=== PATIENT | female | born 1985 | race Caucasian/White ===

== ENCOUNTER 2018-11-18 08:57 | Inpatient (IN) | payer OTHER ==
[2018-11-18] MEDS ORDERED: Buffered Lidocaine 1% SYRIN* 1 ML/SYRINGE INTRADERM ONE (10:29)
[2018-11-18] MEDS ORDERED: Lactated Ringers 1000 ML Bag* 1,000 ML IV ONE (10:29)
--- NOTE | 2018-11-18 10:45 | HP ---
General Information - Reason for Visit Spontaneous rupture of membranes at 0800 with contractions now every 3-7 minutes - General Information Maternal Age: 32 Grav: 1 Para: 0 SAB: 0 IEA: 0 Estimated Due Date: 11/14/18 Determined By: Early Ultrasound Maternal Blood Type and Rh: O Positive - Results this Serology/RPR Result: Non-Reactive Rubella Result: Immune HBsAg Result: Negative HIV Result: Negative GBS Culture Result: Negative Past Medical History Past Medical History Comment: History ADHD, varicose veins, IBS Past Surgical History Comment: wisdom tooth extraction Pertinent Family History: See Records - Antepartal Records Antepartal Records: Reviewed, Uncomplicated Review of Systems Constitutional: Uncomfortable - with contractions CV Complaint: No Respiratory: Shortness of Breath: No Gastrointestinal: No Nausea/Vomiting, Soft Stool Genitourinary: Leaking Fluid Musculoskeletal: Contractions Neurological: No Headache, No Visual Changes Movement: Normal Exam Allergies/Adverse Reactions: Allergies No Known Allergies Allergy (Verified 11/18/18 09:15) Lab Values - Entire Visit: Laboratory Tests 11/18/18 09:24 Vag Amniotic Fld Detect Positive - Measurements Height: 5 ft 11.5 in Weight: 201 lb Weight in lbs: 201.183180 Body Mass Index (BMI): 27.6 Pre- Weight: 157 lb Weight Gained This : 44 lbs and 0 ozs - Exam Breast: - - soft, no masses Extremities: No Edema Heart: Normal Rhythm/Heart Sounds HEENT: No Significant Findings Lungs: Clear Bilaterally Reflexes: DTR 2+ Thyroid: No Thyromegaly - Abdominal Exam Abdomen Exam: Non-Tender - Ultrasound/Biophysical Profile Ultrasound Status: Not Done Targeted Exam Findings See L&D Outpatient Visit Provider Note for Findings: N/A Estimated Weight: 8 lbs Cervical Exam: 6cm Effacement: 90% Station: -1 Presenting Part: Vertex Membrane Status: SROM Amniotic Fluid Evaluation: Positive ROM Plus EFM Findings - External Monitor Findings Baseline Heart Rate: 150 External Monitor Findings: Accelerations Present, No Pattern of Variable or Late Decelerations, Variability Moderate, Baseline Stable External Monitor Findings Comment: Category 1 Contractions: Regular, Moderate, 45-90 Seconds Contraction Frequency: every 5 minutes Assessment/Plan - Assessment 32 year old primigravida at 40 4/7 weeks in active labor - Plan Plan: Admit - Anticipate Vaginal Delivery - Date/Time of Admission Date of Admission: 11/18/18 Time of Admission: 10:15
[2018-11-18] MEDS ORDERED: Lactated Ringers 1000 ML Bag* 1,000 ML IV SCH ×2 (11:00→16:00)
--- NOTE | 2018-11-18 13:02 | PN ---
Progress Note - Progress Note Date of Service: 11/18/18 Note: Feeling pressure. Well controlled, breathing through contractions Cervix: 9cm/100%, 0 station Will await urge to push, complete dilation
[2018-11-18] MEDS ORDERED: Oxytocin in LR* 20 UNITS/1,000 ML BAG IVPB ONE (14:38)
[2018-11-18] MEDS ORDERED: Chloroprocaine 2%* 20 ML VIAL ONE (14:46)
[2018-11-18 14:55] LABS: Hematocrit 41 % (33-41); Hemoglobin 14.2 g/dL (12.0-16.0); Mean Corpuscular HGB Conc 35 g/dL (31-36); Mean Corpuscular Hemoglobin 34 pg (27-31); Mean Corpuscular Volume 97 fL (80-97); Mean Platelet Volume 10.1 fL (7.4-10.4); Platelet Count 137 10^3/uL (150-450); Red Blood Count 4.21 10^6 /uL (3.70-4.87); Red Cell Distribution Width 14 % (10.5-15); White Blood Count 13.2 10^3/uL (3.5-10.8)
[2018-11-18] MEDS ORDERED: ceFAZolin 2 GM PREMIX in ORs 2 GM/50 ML BAG IVPB ONE ×2 (14:55→15:29)
--- NOTE | 2018-11-18 15:00 | PN ---
Progress Note - Progress Note Date of Service: 11/18/18 Note: Pt immediately s/p of female . CTSP due to cord avulsion related to adherent placenta. On exam, cord torn mostly through. Pt without anesthesia but tolerated manual evaluation of entire uterus. Part of placenta able to be delivered down, but fundal portion could not be adequately grasped without additional pain mgmt. Discussed OR manual extraction of placenta including risks of bleeding, infection and associated risk of additional surgery if placenta is truly adherent. Consent signed. Also plan to repair perineal laceration while in OR.
[2018-11-18] MEDS ORDERED: Phenylephrine 40 MCG/ML SYRINGE ONE (15:04)
[2018-11-18] MEDS ORDERED: Ondansetron INJ* 2 MG/ML VIAL ONE (15:04)
[2018-11-18] MEDS ORDERED: EPHEDrine (Pressors)* 50 MG/ML VIAL ONE (15:04)
[2018-11-18] MEDS ORDERED: DiMENhydriNATE IV* 50 MG/ML VIAL IV PUSH PRN (15:25)
[2018-11-18] MEDS ORDERED: Acetaminophen TAB* 325 MG PO PRN ×2 (15:25→15:27)
[2018-11-18] MEDS ORDERED: Witch Hazel PAD* JAR TOPICAL PRN (15:27)
[2018-11-18] MEDS ORDERED: Dibucaine 1% 28.35 GM TUBE PR PRN (15:27)
[2018-11-18] MEDS ORDERED: Glycerin ADULT SUPP PR PRN (15:27)
--- NOTE | 2018-11-18 15:39 | PROCNOTE ---
[facility] OB: Delivery Note - Delivery A Date of : 11/18/18 Time of : 14:25 [place] Sex: Female Weight at : 9 lb 2 oz Score 1 Minute: 9 Score 5 Minutes: 9 Gestational Age in Weeks and Days at Delivery: 40 Weeks and 4 Days Delivery Method: Spontaneous Vaginal Labor: Spontaneous Did Patient attempt ?: N/A, No Previous Amniotic Fluid: Clear Anesthesia/Analgesia: Other Anesthesia Comment: spinal by Dr. Fournier for placental removal in OR Delivered By: Rosa Elena Kinney - Nursery Level of Nursery: Regular/Bedside - Perineum Perineal Injury: Perineal Laceration - partial 3rd degree Perineal Repair: By Dr. Valdes in OR - Events Delivery Events of Note: Retained Placenta, Manual Removal of Placenta - Additional Delivery Notes Additional Delivery Notes: Fully and pushing at 1320. Pushed with steady progress for 1' 05" with SVB LFC, OA at 1425. pink and vigorous with stimulation. Gentle traction on cord with maternal effort as placenta partially resulted in cord avulsion. Manual removal of placenta attempted but placenta adherent. Dr. Valdes notified, he attempted manual removal without success. To OR for spinal anesthesia, manual removal of placenta, repair of laceration.
[2018-11-18] MEDS ORDERED: OXYTOCIN* 10 UNITS/ML 1 ML VIAL ONE (15:42)
[2018-11-18] MEDS ORDERED: Lidocaine 1% INJ* 10 MG/ML 30 ML SDV ONE (15:42)
[2018-11-18] MEDS ORDERED: Oxytocin in LR* 20 UNITS/1,000 ML BAG IVPB SCH (16:00)
[2018-11-18] MEDS ORDERED: Ammonia Inhalant* 1 EA AMP ONE (18:45)
--- NOTE | 2018-11-18 19:33 | OP ---
OPERATIVE REPORT: DATE OF OPERATION: 11/18/18 DATE OF : 81 SURGEON: Kriss Valdes MD ANESTHESIOLOGIST: Dr. Fournier. ANESTHESIA: Spinal. PRE-OP DIAGNOSES: 1. Retained placenta . 2. Partial third-degree perineal laceration. POST-OP DIAGNOSES: 1. Retained placenta . 2. Partial third-degree perineal laceration. OPERATIVE PROCEDURE: Manual extraction of retained placenta and repair of partial third-degree perineal laceration. ESTIMATED BLOOD LOSS: 300 cc. URINE OUTPUT: Not measured. IV FLUIDS: 1300 cc lactated Ringer's. MATERIALS TO LAB: Placenta. INDICATIONS: This patient is a 32-year-old 1, para 1, who presented at 40 plus 4 weeks gestation and delivered by spontaneous vaginal delivery this afternoon. The patient was managed and delivered by the paving block cutter service. They contacted me, the physician on-call, when there was cord avulsion due to difficulty delivering the placenta. On evaluation in the delivery room, the patient allowed a very good examination despite her lack of any anesthesia, but the placenta could not be removed and grasped adequately without sufficient pain control. Considering this, the patient was counseled and consented for manual extraction of the placenta in the operating room with spinal anesthetic. We also discussed closure of the perineum at the same time. FINDINGS: Placenta somewhat adherent to the anterior uterus and upper left cornual area. This did come down without much difficulty once a hand could be placed fully into the upper uterus. No additional tissue was palpated afterwards. The patient was also noted to have a partial third-degree laceration with disruption of the anal sphincter capsule. COMPLICATIONS: None. DESCRIPTION OF PROCEDURE: The risks, benefits, and alternatives were described to the patient and informed consent was obtained. The patient was taken to the operating room with IV running. A time-out was performed. A Vu catheter was placed. The urine output was unable to be measured as there was a defect in the Vu bag, which caused it to leak. The patient was draped in a high lithotomy position. A hand was then able to be placed through the vagina and into the upper uterine cavity. The placenta was palpated and then grasped and pulled down until it had been fully delivered. On reinspection of the uterine cavity, a small amount of adherent placenta was able to be removed digitally without difficulty. At that time, the uterine cavity felt smooth without additional remaining tissue. IV Pitocin was administered and bimanual massage resulted in firm fundal tone and minimal bleeding. At that time, the perineum and introitus were inspected. There was a right vaginal sulcus laceration, which was noted to have bleeding and this was repaired with 3-0 Vicryl Rapide in a running locked fashion with good hemostasis. On inspection of the perineal laceration, there was partial disruption of the anterior anal sphincter capsule, but the muscle appeared to be mostly intact. 3-0 Vicryl interrupted sutures were placed in the capsule and muscle anteriorly with good reapproximation. The rest of the perineal laceration was then repaired with 3-0 Vicryl Rapide in the usual fashion. Bilateral labial superficial lacerations were also present. These were both closed with 4-0 Vicryl Rapide in a running fashion. At that time, there was minimal bleeding present and good reapproximation of all the lacerations. At that time, the procedure was complete. The patient was cleaned and then returned to the supine position. The patient tolerated the procedure well. Sponge, lap, and needle counts were correct x2. [id number]/[facility] #: [id number] [facility]
[2018-11-18] MEDS: Ibuprofen TAB* 600 MG PO PRN (21:55)
[2018-11-18] MEDS: Docusate CAP* 100 MG PO SCH (21:55)
[2018-11-19] MEDS: Ibuprofen TAB* 600 MG PO PRN ×4 (04:11→22:30)
[2018-11-19 07:54] LABS: Hematocrit 27 % (33-41); Hemoglobin 9.7 g/dL (12.0-16.0); Mean Corpuscular HGB Conc 36 g/dL (31-36); Mean Corpuscular Hemoglobin 35 pg (27-31); Mean Corpuscular Volume 97 fL (80-97); Red Blood Count 2.82 10^6 /uL (3.70-4.87); Red Cell Distribution Width 13 % (10.5-15); White Blood Count 8.4 10^3/uL (3.5-10.8)
[2018-11-19 08:47] LABS: ABS Basophils 0 10^3/ul (0-0.2); ABS Eosinophils 0.1 10^3/ul (0-0.6); ABS Lymphocytes 1.4 10^3/ul (1.0-4.8); ABS Monocytes 0.5 10^3/ul (0-0.8); ABS Neutrophils 6.4 10^3/ul (1.5-7.7); ABS Nucleated RBC 0 10^3/ul; Eosinophil % 0.8 %; Lymphocyte % 16.2 %; Mean Platelet Volume 9.6 fL (7.4-10.4); Nucleated Red Blood Cells % 0.1; Platelet Count 95 10^3/uL (150-450)
[2018-11-19] MEDS: Ferrous Gluconate TAB* 324 MG TAB PO SCH ×2 (10:27→20:55)
[2018-11-19] MEDS: Docusate CAP* 100 MG PO SCH ×3 (10:28→20:56)
[2018-11-20] MEDS: Ibuprofen TAB* 600 MG PO PRN ×2 (05:48→11:32)
[2018-11-20] MEDS: Docusate CAP* 100 MG PO SCH (08:28)
[2018-11-20] MEDS: Ferrous Gluconate TAB* 324 MG TAB PO SCH (08:28)
[2018-11-20 08:30] VITALS: BP 110/61
--- NOTE | 2018-11-20 09:27 | PTEDU ---
Patient Name: JOVI PARKER JOVI PARKER selected video: BBOB: Bonding Through Massage to view on 11/20/2018 at 9:26:26 A [id number]
--- NOTE | 2018-11-20 10:04 | PTEDU ---
Patient Name: JOVI PARKER JOVI PARKER selected video: BBOB: Bonding Through Massage to view on 11/20/2018 at 10:03:12 [id number]
--- NOTE | 2018-11-20 10:53 | PTEDU ---
Patient Name: JOVI PARKER JOVI PARKER selected video: Follow Me Mum: [facility] [place] [facility] to view on 9 at 10:52:06 [id number]
== END 2018-11-20 12:05 | disposition home or self-care (01) | DRG 768 ==
LOC: MCHOBOUT 08:57 → MCHOB 10:22
PROVIDERS: ADMIT Midwife; ATTEND Midwife
PROC: 0DQR0ZZ Repair Anal Sphincter, Open Approach (ICD-10-PCS; 2018-11-18)
PROC: 10D17Z9 Manual Extraction of Products of Conception, Retained, Via Natural or Artificial Opening (ICD-10-PCS; 2018-11-18)
PROC: 10E0XZZ Delivery of Products of Conception, External Approach (ICD-10-PCS; principal; 2018-11-18 14:50)
DX: O48.0 Post-term pregnancy (principal); Z37.0 Single live birth; O70.20 Third degree perineal laceration during delivery, unspecified; O73.0 Retained placenta without hemorrhage; O90.81 Anemia of the puerperium; D64.9 Anemia, unspecified; Z3A.40 40 weeks gestation of pregnancy
CPT/HCPCS: 36415; 84112; 85025; 85027; 86850; 86900; 86901; 88307; A9270-GY; J0690; J2400; J2405; J2590

== ENCOUNTER 2022-04-10 14:00 | Inpatient (IN) ==
[2022-04-10] MEDS ORDERED: Buffered Lidocaine 1% SYRIN 1 ml INTRADERM ONE (15:42)
[2022-04-10] MEDS ORDERED: Lactated Ringers 1000 ml BAG 1,000 ML IV ONE (15:42)
[2022-04-10] MEDS ORDERED: Oxytocin in LR 20,000 MILLI.UNIT/1,000 ML BAG IV SCH (16:00)
[2022-04-10 16:13] LABS: ABS Eosinophils 0.1 10^3/ul (0-0.6); ABS Lymphocytes 1.4 10^3/ul (1.0-4.8); ABS Monocytes 0.6 10^3/ul (0-0.8); ABS Neutrophils 5.5 10^3/ul (1.5-7.7); Eosinophil % 0.8 %; Hematocrit 35 % (35-47); Hemoglobin 12.8 g/dL (12.0-16.0); Lymphocyte % 18.5 %; Mean Corpuscular HGB Conc 37 g/dL (31-36); Mean Corpuscular Hemoglobin 36 pg (27-31); Mean Corpuscular Volume 98 fL (80-97); Mean Platelet Volume 9.7 fL (7.4-10.4); Nucleated Red Blood Cells % 0.1; Platelet Count 124 10^3/uL (150-450); Red Blood Count 3.57 10^6 /uL (3.70-4.87); Red Cell Distribution Width 13 % (10-15); White Blood Count 7.5 10^3/uL (3.5-10.8)
[2022-04-10] MEDS: Lactated Ringers 1000 ml BAG 1,000 ML IV SCH (16:27)
[2022-04-10 16:32] LABS: Urine Benzodiazepine Screen None Detected (None Detect); Urine Cannabinoids Screen None Detected (None Detect); Urine Opiates Screen None Detected (None Detect)
[2022-04-10] MEDS ORDERED: Calcium Carb (TUMS) 500 mg CHEW TAB PO PRN (19:33)
[2022-04-10] MEDS ORDERED: Famotidine IV 10 MG/ML 2 ml VIAL (20 mg) IV SLOW PU PRN (19:34)
[2022-04-11] MEDS: Lactated Ringers 1000 ml BAG 1,000 ML IV SCH ×2 (01:25→03:17)
[2022-04-11] MEDS ORDERED: OBEPIDURAL (200 ML) 0 ML EPIDURAL ONE (01:34)
[2022-04-11] MEDS ORDERED: Lidocaine 1% w EPI 1:200,000 SDV 30 ML VIAL ONE (01:34)
[2022-04-11] MEDS ORDERED: fentaNYL 100 mcg/2 ml 50 MCG/ML VIAL ONE (01:38)
[2022-04-11] MEDS ORDERED: Bupivacaine 0.25% SDV PF 10 ML VIAL INJ ONE (01:38)
[2022-04-11 02:51] LABS: Urine Appearance Clear; Urine Bilirubin Negative (Negative); Urine Blood Trace (Intact) (Negative); Urine Color Straw; Urine Glucose Negative (Negative); Urine Ketones Negative (Negative); Urine Nitrite Negative (Negative); Urine Protein Negative (Negative); Urine Specific Gravity 1.015 (1.005-1.030); Urine Urobilinogen 0.2 (Negative) (Negative)
[2022-04-11 03:38] LABS: Urine Bacteria Absent (Absent); Urine Red Blood Cell Trace(0-2/hpf) (Absent); Urine White Blood Cell Trace(0-5/hpf) (Absent)
[2022-04-11] MEDS ORDERED: Witch Hazel PAD JAR TOPICAL PRN (05:25)
[2022-04-11] MEDS ORDERED: Dibucaine 1% OINT 28.35 GM TUBE PR PRN (05:25)
[2022-04-11] MEDS ORDERED: Glycerin ADULT 2.4 gm SUPP PR PRN (05:25)
[2022-04-11] MEDS ORDERED: Oxytocin in LR 20,000 MILLI.UNIT/1,000 ML BAG IV SCH (05:30)
[2022-04-11] MEDS ORDERED: Lactated Ringers 1000 ml BAG 1,000 ML IV ONE (07:10)
[2022-04-11] MEDS ORDERED: Sodium Citrate/Citric Acid LIQ 15 ML UDC PO PRN (07:10)
[2022-04-11] MEDS ORDERED: Phenylephrine 40 mcg/mL 10mL (400mcg) SYRINGE IV PUSH PRN ×2 (07:15)
[2022-04-11] MEDS ORDERED: OBEPIDURAL (200 ML) 200 ML EPIDURAL SCH (08:00)
[2022-04-11] MEDS ORDERED: Lactated Ringers 1000 ml BAG 1,000 ML IV SCH (08:00)
[2022-04-11] MEDS ORDERED: Lidocaine 1% MPF 5 ML VIAL ONE (11:54)
[2022-04-12 08:08] LABS: ABS Eosinophils 0.1 10^3/ul (0-0.6); ABS Lymphocytes 1.7 10^3/ul (1.0-4.8); ABS Monocytes 0.4 10^3/ul (0-0.8); ABS Neutrophils 4.8 10^3/ul (1.5-7.7); Eosinophil % 2.1 %; Hematocrit 34 % (35-47); Hemoglobin 12.2 g/dL (12.0-16.0); Lymphocyte % 23.8 %; Mean Corpuscular HGB Conc 36 g/dL (31-36); Mean Corpuscular Hemoglobin 36 pg (27-31); Mean Corpuscular Volume 100 fL (80-97); Mean Platelet Volume 9.8 fL (7.4-10.4); Platelet Count 114 10^3/uL (150-450); Red Blood Count 3.42 10^6 /uL (3.70-4.87); Red Cell Distribution Width 14 % (10-15); White Blood Count 7.1 10^3/uL (3.5-10.8)
[2022-04-13 07:21] VITALS: BP 93/58
== END 2022-04-13 15:20 | disposition home or self-care (01) | DRG 807 ==
LOC: MCHOBOUT 14:00 → MCHOB 15:40
PROVIDERS: ADMIT Midwife; ATTEND Midwife